=== PATIENT | male | born 1990 | race Caucasian/White ===

== ENCOUNTER 2017-04-13 16:21 | Emergency (ER) | payer OTHER ==
--- NOTE | 2017-04-13 16:52 | PDOC ---
Rapid Medical Evaluation Time Seen by Provider: 04/13/17 16:50 Medical Evaluation: Allergies Allergy/AdvReac Type Severity Reaction Status Date / Time No Known Allergies Allergy Verified 01/12/16 10:38 04/13/17 16:50 I have performed a brief in-person evaluation of this patient. The patient presents with a chief complaint of: hx of stomach ulcers (on pantoprazole),RUQ radiating to upper back x 5 days, vomiting yesterday 2x, denies diarrhea, denies fever/chills, +marijuana use, last use tuesday, denies alcohol use Pertinent physical exam findings: well appearing I have ordered the following: CBC, CMP, lipase The patient will proceed to the ED for further evaluation. Discharge Disposition - Diagnosis Abdominal pain - Referrals - Patient Instructions - Post Discharge Activity
[2017-04-13 16:53] VITALS: BMI 29.0
[2017-04-13 17:15] LABS: BASO % 0.4 % (0-2.0); EOS % 0.6 % (0-4.5); HEMATOCRIT 46.1 % (35.4-49); HEMOGLOBIN 15.3 GM/dL (11.7-16.9); LYMPH % 17.5 % (8-40); MCH 26.2 pg (25.7-33.7); MCHC 33.1 g/dl (32.0-35.9); MEAN CELL VOLUME 78.9 fl (80-96); MEAN PLT VOLUME 9.7 fl (7.5-11.1); MONO % 7.2 % (3.8-10.2); NEUT % 74.3 % (42.8-82.8); PLATELET COUNT 199 K/MM3 (134-434); RBC 5.85 M/mm3 (4.00-5.60); RDW 12.7 % (11.9-15.9); WHITE BLOOD COUNT 8.9 K/mm3 (4.0-10.0)
[2017-04-13 18:11] LABS: ALBUMIN 4.9 g/dl (3.4-5.0); ANION GAP 11 (8-16); BLOOD UREA NITROGEN 18 mg/dL (7-18); CALCIUM 9.8 mg/dL (8.5-10.1); CHLORIDE 100 mmol/L (98-107); CO2 27 mmol/L (21-32); CREATININE 1.1 mg/dL (0.7-1.3); GLUCOSE,RANDOM 80 mg/dL (74-106); POTASSIUM 3.8 mmol/L (3.5-5.1); SGOT/AST 15 U/L (15-37); SGPT/ALT 24 U/L (12-78); SODIUM 138 mmol/L (136-145)
[2017-04-13 18:13] LABS: ALK PHOS 79 U/L (45-117); TOT PROT 8.6 g/dl (6.4-8.2)
[2017-04-13] MEDS ORDERED: MAG HYDROX/AL HYDROX/SIMETH 30 ML UNIT-DOSE CUP PO ONE (20:42)
[2017-04-13] MEDS ORDERED: SUCRALFATE 1 GM TABLET (FP) PO ONE (20:42)
[2017-04-13] MEDS ORDERED: SODIUM CHLORIDE 1,000 ML IV STA (20:43)
--- NOTE | 2017-04-13 20:44 | PDOC ---
History of Present Illness - General Chief Complaint: Pain Stated Complaint: STOMACH PAIN Time Seen by Provider: 04/13/17 16:50 - History of Present Illness Initial Comments: 04/13/17 20:38 27 yo M with h/o PUD, GERD, Nephrolithiasis who presents with epigastric pain. Pt. reports recurrent emesis vomiting x 4 days. Last 2 days reports dark, black biliary emesis with no visualized BRB. Pressure type RUQ and epigastirc pain with radiation to BL subscapular region. Pain and N/V exacerbated with PO food intake. Denies F/C, diarrhea, constipation, BPR, SOB, urinary complaints, hematuria, flank pain. On Pantaprazole 40 mg x 5 months. Recent endoscopy x 4 months ago. Recently received endoscopy results ( 02/2017) for ulcer, but does not recall gastric vs. intestinal. Has f/u appt. scheduled in 2 weeks. Recent RUQ U/S 3 months ago with no evidence of cholelithiasis. Denies alcohol use. Occasional marijuanna use. Denies NSAID and caffeine intake. Follow [facility] at [address] [place] [address]. Past History - Past Medical History Allergies/Adverse Reactions: Allergies Allergy/AdvReac Type Severity Reaction Status Date / Time No Known Allergies Allergy Verified 04/13/17 16:53 Home Medications: Ambulatory Orders Ibuprofen 800 mg PO QID #30 tablet 01/12/16 Oxycodone HCl/Acetaminophen [Percocet 5-325 mg Tablet] 1 tab PO Q4H PRN #10 tablet MDD 4 01/12/16 Tamsulosin HCl [Flomax] 0.4 mg PO DAILY #14 cap.er.24h 01/12/16 Sucralfate Oral Suspension [Carafate *Oral Susp*] 10 ml PO QID PRN #100 ml MDD 40 ml 04/13/17 COPD: No GI Disorders: Yes (ulcers) - Suicide/Smoking/Psychosocial Hx Smoking History: Never smoked Information on smoking cessation initiated: No Hx Alcohol Use: No Drug/Substance Use Hx: Yes (marijuana) Substance Use Type: Marijuana Review of Systems - Review of Systems Comments:: 04/13/17 20:49 GENERAL/CONSTITUTIONAL: No fever or chills. No weakness. HEAD, EYES, EARS, NOSE AND THROAT: No change in vision. No ear pain or discharge. No sore throat.- CARDIOVASCULAR: No chest pain or shortness of breath RESPIRATORY: No cough, wheezing, or hemoptysis. GASTROINTESTINAL: No nausea, vomiting, diarrhea or constipation. GENITOURINARY: No dysuria, frequency, or change in urination. MUSCULOSKELETAL: No joint or muscle swelling or pain. No neck or back pain. SKIN: No rash NEUROLOGIC: No headache, vertigo, loss of consciousness, or change in strength/ sensation. ENDOCRINE: No increased thirst. No abnormal weight change HEMATOLOGIC/LYMPHATIC: No anemia, easy bleeding, or history of blood clots. ALLERGIC/IMMUNOLOGIC: No hives or skin allergy. *Physical Exam - Vital Signs Last Vital Signs Temp Pulse Resp BP Pulse Ox 98.5 F 79 19 123/87 98 04/13/17 16:50 04/13/17 16:50 04/13/17 16:50 04/13/17 16:50 04/13/17 16:50 - Physical Exam Comments: 04/13/17 20:50 GENERAL: Awake, alert, and fully oriented, in no acute distress HEAD: No signs of trauma, normocephalic, atraumatic EYES: PERRLA, EOMI, sclera anicteric, conjunctiva clear ENT: Hearing grossly normal, nares patent, oropharynx clear without exudates. Moist mucosa NECK: Normal ROM, no JVD, or masses LUNGS: No distress, speaks full sentences, clear to auscultation bilaterally HEART: Regular rate and rhythm, normal S1 and S2, no murmurs, rubs or gallops, peripheral pulses normal and equal bilaterally. ABDOMEN: Soft, nontender, normoactive bowel sounds. No guarding, no rebound. No masses EXTREMITIES : Normal inspection, Normal range of motion, no edema. No clubbing or cyanosis. SKIN: Warm, Dry, normal turgor, no rashes or lesions noted. ED Treatment Course - LABORATORY CBC & Chemistry Diagram: 04/13/17 17:05 04/13/17 17:05 - ADDITIONAL ORDERS Additional order review: Laboratory Results 04/13/17 04/13/17 17:05 17:05 Sodium 138 Potassium 3.8 Chloride 100 Carbon Dioxide 27 Anion Gap 11 BUN 18 D Creatinine 1.1 Creat Clearance w eGFR > 60 Random Glucose 80 Calcium 9.8 Total Bilirubin 1.0 AST 15 ALT 24 D Alkaline Phosphatase 79 Total Protein 8.6 H Albumin 4.9 Lipase 154 04/13/17 17:05 RBC 5.85 H MCV 78.9 L MCHC 33.1 RDW 12.7 MPV 9.7 Neutrophils % 74.3 Lymphocytes % 17.5 Monocytes % 7.2 Eosinophils % 0.6 Basophils % 0.4 Medical Decision Making - Medical Decision Making 04/13/17 21:04 27 yo M with h/o PUD, GERD, Nephrolithiasis who presents with epigastric pain and recurrent emesis vomiting x 4 days, with report of dark, black emesis of 2 days duration. Pressure type RUQ and epigastirc pain with radiation to BL subscapular region. Pain and N/V exacerbated with PO food intake. Denies F/C, diarrhea, constipation, BPR, SOB, urinary complaints, hematuria, flank pain. On Pantaprazole 40 mg x 5 months. Recent endoscopy x 4 months ago. Recently received endoscopy results ( 02/2017) for ulcer in intestine. Has f/u apt. scheduled in 2 weeks. Recent RUQ U/S 3 months ago with no evidence of cholelithiasis.Does not recall H.Pylori testing. Denies alcohol use. Occasional marijuanna use. Denies NSAID and caffeine intake. Physical exam unremarkable. Patient hemodynamically stable. S/s most likely 2/2 gastritis vs. PUD. DDx: Gastritis, PUD, Esophagitis, Cholelithiasis, Pancreatitis (less likely) ED Course: Ranitidine, Zofran, Maloox, Carafate, NS CBC, CMP: Unremarkable 04/13/17 23:10 Patient pain improved and stable for d/c with return precautions and advised to f/u with GI. *DC/Admit/Observation/Transfer Diagnosis at time of Disposition: Abdominal pain, Abdominal pain with vomiting - Discharge Dispostion Disposition: HOME Condition at time of disposition: Stable Admit: No - Referrals Referrals: Ralph Feldman MD [Primary Care Provider] - Adrian Gallardo MD [Staff Physician] - - Patient Instructions Printed Discharge Instructions: DI for Gastritis Additional Instructions: Please return to the emergency department with any new or worsening symptoms or concerns. Please follow up with your gastroneterologist physician at scheduled appointment. Please take - Post Discharge Activity - Attestations Physician Attestion: 04/13/17 21:23 I attest to the information provided in this note.
[2017-04-13] MEDS ORDERED: RANITIDINE HCL 150 MG TABLET (FP) PO ONE (20:45)
[2017-04-13] MEDS ORDERED: ONDANSETRON 4 MG TABLET PO ONE (21:04)
[2017-04-13] MEDS ORDERED: RANITIDINE HCL 150 MG TABLET (FP) ONE (21:47)
[2017-04-13] MEDS ORDERED: MAG HYDROX/AL HYDROX/SIMETH 30 ML UNIT-DOSE CUP ONE (21:48)
[2017-04-13] MEDS ORDERED: SUCRALFATE 1 GM TABLET (FP) ONE (21:48)
[2017-04-13] MEDS ORDERED: ONDANSETRON *ODT* 4 MG TABLET ONE (21:48)
--- NOTE | 2017-04-13 23:22 | PDOC ---
Attending Attestation - HPI HPI: 04/13/17 23:23 The patient is a 27 year old male with history of GERD, PUD, kidney stones, who presents to the ED complaining of approximately 4 days of epigastric/RUQ pain, radiating to the back with associated nausea and vomiting. States his vomiting was initially NBNB and has become dark over the past two days. Had RUQ CT approximately 3 months ago. No fever or chills. No diarrhea or constipation. <Carey De Jesus - Last Filed: 04/13/17 23:23> - Resident Resident Name: Jerson Baig - ED Attending Attestation I have performed the following: I have examined & evaluated the patient, The case was reviewed & discussed with the resident, I agree w/resident's findings & plan, Exceptions are as noted - Physicial Exam PE: 04/14/17 02:20 awake, alert, well nourished, nad nc, atr\ perrla, eomi mmm cta rrr sft, nt ,nd - Medical Decision Making 04/14/17 02:20 pt is 27 y/o male with recently diagnsoed PUD who presents wiht abd pain, n, v. n the ED, pt is well appearing, nad. serial abd exams sloan no focal ttp, cbc/ cmp/lipase-wnl. no evidence of UGI bleeding or melena. pt edwina po in the ed, will d/c with gi f/u. <Rory Handy - Last Filed: 04/14/17 02:21>
[2017-04-13 23:32] VITALS: BP 128/80; PULSE 86; TEMP 98.1
== END 2017-04-13 23:32 | disposition home or self-care (01) ==
LOC: JER 16:21
PROC: 3E0337Z Introduction of Electrolytic and Water Balance Substance into Peripheral Vein, Percutaneous Approach (ICD-10-PCS; principal; 2017-04-13)
DX: K29.60 Other gastritis without bleeding (principal); K21.9 Gastro-esophageal reflux disease without esophagitis; Z87.11 Personal history of peptic ulcer disease
CPT/HCPCS: 36415; 80053; 83690; 85025; 99282-25

== ENCOUNTER 2022-08-11 09:35 | Emergency (ER) | payer OTHER ==
[2022-08-11 09:41] VITALS: BP 131/82; PULSE 92; RESP 18; TEMP 98.3; BMI 22.1
[2022-08-11] MEDS ORDERED: LIDOCAINE VISCOUS 2% ORAL/TOP 15 ML UNIT-DOSE CUP MM ONE (10:01)
[2022-08-11] MEDS ORDERED: LIDOCAINE VISCOUS 2% ORAL/TOP 15 ML UNIT-DOSE CUP ONE (10:14)
[2022-08-11] MEDS ORDERED: DEXAMETHASONE SOD PHOSPHATE 10 MG/1 ML VIAL IM ONE (11:19)
[2022-08-11] MEDS ORDERED: DEXAMETHASONE SOD PHOSPHATE 10 MG/1 ML VIAL ONE (11:28)
== END 2022-08-11 12:29 | disposition home or self-care (01) ==
LOC: JERFT 09:35
PROC: 3E023GC Introduction of Other Therapeutic Substance into Muscle, Percutaneous Approach (ICD-10-PCS; principal; 2022-08-11)
DX: R07.0 Pain in throat (principal); R13.10 Dysphagia, unspecified; R50.9 Fever, unspecified
CPT/HCPCS: 87651; 99284-25; J1100